=== PATIENT | female | born 1950 | race Caucasian/White ===

== ENCOUNTER 2017-07-24 12:31 | Day surgery (SDC) | payer MEDICARE, OTHER ==
[~2017-07-24 12:31] MED LIST: RINGER'S SOLUTION,LACTATED 1,000 ML IV PRN; ceFAZolin SODIUM 1 GM in DEXTROSE 5 % IN WATER 100 ML IV PRN
[2017-07-24] MEDS ORDERED: RINGER'S SOLUTION,LACTATED 1,000 ML IV ONE (13:15)
[2017-07-24] MEDS ORDERED: ceFAZolin SODIUM 1 GM VIAL IM/IV ONE (13:20)
[2017-07-24] MEDS ORDERED: BUPIVACAINE HCL 50 ML VIAL IJ ONE (13:35)
[2017-07-24] MEDS ORDERED: BUPIVACAINE HCL/EPINEPHRINE 50 ML VIAL IJ ONE (13:35)
[2017-07-24] MEDS ORDERED: DEXAMETHASONE SOD PHOSPHATE 4 MG/ML VIAL IV ONE (13:50)
[2017-07-24] MEDS ORDERED: HYDROcodone/ACETAMINOPHEN 1 EACH TABLET PO PRN (15:39)
[2017-07-24] MEDS ORDERED: PROCHLORPERAZINE EDISYLATE 5 MG/ML VIAL IM PRN (15:40)
[2017-07-24 16:42] VITALS: BP 132/73
== END 2017-07-24 12:32 | disposition home or self-care (01) ==
LOC: AMB 12:31
PROVIDERS: ATTEND Podiatrist
PROC: 0L8W0ZZ Division of Left Foot Tendon, Open Approach (ICD-10-PCS; 2017-07-24)
PROC: 0QSP04Z Reposition Left Metatarsal with Internal Fixation Device, Open Approach (ICD-10-PCS; principal; 2017-07-24 13:00)
DX: M21.612 Bunion of left foot (principal); M20.42 Other hammer toe(s) (acquired), left foot; Z68.22 Body mass index [BMI] 22.0-22.9, adult